=== PATIENT | male | born 1965 | race Caucasian/White ===

== ENCOUNTER 2021-04-06 06:49 | Day surgery (SDC) | payer OTHER ==
[~2021-04-06 06:49] MED LIST: LOSARTAN POTASS50 MG PO; MULTI VIT PO
[2021-04-06] MEDS ORDERED: VITAMIN D5000 UNIT PO (07:35)
[2021-04-06 08:52] VITALS: BP 127/83
--- NOTE | 2021-04-11 14:52 | NUR ---
PER PHYSICIAN, NOTIFIED PATIENT OF COLON BIOPSY RESULTS, BENIGN. ADVISED TO REPEAT PROCEDURE X 5 YEARS OR SOONER IF SYMPTOMS CHANGE, REFER BY PRIMARY. PATIENT AGREED TO INFORMATION GIVEN. STATED WILL CALL US IF NEEDED AND WILL FOLLOW UP WITH PRIMARY NEEDED. NOTE AND RESULTS FORWARDED TO PRIMARY FOR CONTINUITY OF CARE.
== END 2021-04-06 09:01 | disposition home or self-care (01) | DRG 951 ==
LOC: ENDO 06:49
PROVIDERS: ATTEND Surgery
PROC: 0DBN8ZX Excision of Sigmoid Colon, Via Natural or Artificial Opening Endoscopic, Diagnostic (ICD-10-PCS; principal; 2021-04-06)
PROC: 0DBH8ZX Excision of Cecum, Via Natural or Artificial Opening Endoscopic, Diagnostic (ICD-10-PCS; 2021-04-06)
DX: Z12.11 Encounter for screening for malignant neoplasm of colon (principal); D12.0 Benign neoplasm of cecum; D12.5 Benign neoplasm of sigmoid colon; K57.30 Diverticulosis of large intestine without perforation or abscess without bleeding; K64.8 Other hemorrhoids; K64.4 Residual hemorrhoidal skin tags; F17.210 Nicotine dependence, cigarettes, uncomplicated

== ENCOUNTER 2023-02-21 07:00 | Day surgery (SDC) | payer OTHER ==
[~2023-02-21] VITALS: Ht 172.7 cm; Wt 72.6 kg
[~2023-02-21 07:00] MED LIST changes: +PRILOSEC20 MG/CAP PO; +VITAMIN D5000 UNIT PO
[2023-02-21 09:09] VITALS: BP 124/81
[2023-02-26] MEDS ORDERED: PRILOSEC20 MG/CAP PO (10:09)
== END 2023-02-21 08:45 | disposition home or self-care (01) | DRG 392 ==
LOC: ENDO 07:00 → ORM 08:00 → ENDO 08:45 → ORM 09:35 → ENDO 11:30 → ORM 02-28 08:00
PROVIDERS: ATTEND Surgery
PROC: 0DB78ZX Excision of Stomach, Pylorus, Via Natural or Artificial Opening Endoscopic, Diagnostic (ICD-10-PCS; principal; 2023-02-21)
DX: K29.50 Unspecified chronic gastritis without bleeding (principal); K31.9 Disease of stomach and duodenum, unspecified; K44.9 Diaphragmatic hernia without obstruction or gangrene; F17.210 Nicotine dependence, cigarettes, uncomplicated; I10 Essential (primary) hypertension; Z79.899 Other long term (current) drug therapy